=== PATIENT | female | born 1995 | race Caucasian/White ===

== ENCOUNTER 2018-12-18 07:41 | Inpatient (IN) ==
[2018-12-19] MEDS ORDERED: OXYTOCIN 30 UNITS/500 ML BAG IV PRN ×3 (07:59→18:01)
[2018-12-19 08:14] LABS: Hematocrit (blood only) 36.1 % (37-47); Mean Corpuscular Hemoglobin 28.8 pg (25-34); Mean Corpuscular Volume 86.6 fL (80-100); Mean Platelet Volume 10.1 fL (7.4-10.4); Platelet Count 195 K/uL (130-400); RDW Coefficient of Variation 12.9 % (11.5-14.5); RDW Standard Deviation 41.4 fL (36.4-46.3); Red Blood Count 4.17 M/uL (4.2-5.4); White Blood Count 10.86 K/uL (4.8-10.8)
[2018-12-19 08:16] LABS: Mean Corpuscular Hgb Conc 33.2 g/dL (32-36)
[2018-12-19] MEDS: LACTATED RINGER'S 1,000 ML IV PRN ×3 (08:38→14:33)
--- NOTE | 2018-12-19 08:46 | History & Physical Report ---
Date of Service December 19, 2018 Assessment & Plan (1) : 23yo at 40.3 weeks GA. Present for IOL. 1. Fetus: Cat 1 2. Labor: S/p Sheets. Oxytocin. Will ROM when able 3. Vitals: WNL 4. GBS- History of Present Illness Primary Care Provider: NO PCP 23yo at 40.3 weeks GA. Present for IOL. Denies VB, LOF. Good FM. course complicated by prior complicated by aortic stenosis. ECHO normal with this . GBS negative/Normal cfDNA/ Rubella immune / AB+ Allergies Allergy/AdvReac Type Severity Reaction Status Date / Time No Known Drug Allergies Allergy Verified 12/18/18 16:23 Home Medications Home Medications Medication Instructions Recorded Confirmed Type 1 tab PO DAILY 10/14/18 12/19/18 History vitamin,calcium,qezvbsfa-jrwg-hddpv acid tablet Patient History Family History Son Heart murmur Aortic stenosis Social History Preferred Language: Somali Communication Ability: Effective Quantitative Analyst Developer Required: No Beliefs That Will Affect Care: None marital status: Single Current Living Situation: Significant Other Other Information That Helps Us Care for You: No Feels Safe at Home: Yes Smoking Status: Never smoker Hx Alcohol Use: No Hx Substance Use: No Physical Exam Constitutional: WD/WN, vitals as above Gastrointestinal (Abdomen): Inspection/Auscultation: abdomen normal to inspection Percussion/Palpation: abdomen soft; abdomen nontender, no guarding and abdomen not rigid Genitourinary: OB Exam Abdomen: + fundal height Manual OB Exam: + cervical dilation 3 cm, + cervical effacement 70%, + station -2 and + amniotic fluid OB Exam Monitor Tracing: + external FHT monitor used, + external uterine monitor used, + category I and + normal FHT variability Results & Data Vital Signs (Past 12 Hours) Vital Signs Temp Pulse Resp BP 12/19/18 07:44 37.2 C 88 20 115/62 Code Status & VTE Plan VTE Prophylaxis Plan VTE Prophylaxis will be ordered: No
[2018-12-19] MEDS ORDERED: BUPIVACAINE 0.25% 30 ML VIAL ONE (12:55)
[2018-12-19] MEDS ORDERED: fentaNYL citrate 100 MCG/2 ML VIAL ONE (12:56)
[2018-12-19] MEDS ORDERED: fentaNYL 2MCG/ML ROPIV 1.25MG/ML 100 ML BAG EPI ONE (12:56)
[2018-12-19] MEDS ORDERED: ePHEDrine sulfate 50 MG/ML AMP ONE (12:56)
--- NOTE | 2018-12-19 12:59 | Anesthesiology Consultation ---
Date of Service December 19, 2018 Assessment & Plan (1) Encounter for pre-operative examination: Chart Review Chart Review: Acceptable Risk for Surgery and Acceptable Risk for Labor Epidural History Height/Weight Height: 4 ft 10 in Weight: 69.4 kg Allergies Allergy/AdvReac Type Severity Reaction Status Date / Time No Known Drug Allergies Allergy Verified 12/18/18 16:23 Medications Home Medications Medication Instructions Recorded Confirmed Last Taken 1 tab PO DAILY 10/14/18 12/19/18 12/19/18 06:30 vitamin,calcium,onhautwq-lkik-ryzvh acid tablet Active Medications Generic Name Dose Route Start Last Admin Trade Name Freq PRN Reason Stop Dose Admin Lactated Ringer's 1,000 mls @ 125 mls/hr 12/19/18 07:59 12/19/18 12:39 Lr IV 12/21/18 07:58 999 mls/hr .Q8H PRN Infusion L&D Protocol Protocol Oxytocin 30 units in 500 mls @ 10 mls/hr 12/19/18 07:59 12/19/18 11:15 Pitocin IV 12/21/18 07:58 0.6 units/hr .Q24H PRN 10 mls/hr Labor Induction/Augmentation Titration Protocol 0.6 UNITS/HR Past Medical History Medical History History of varicella Past Family History Family History Son Heart murmur Aortic stenosis Past Surgical History Surgical History No pertinent past surgical history Social History Smoking Status: Never smoker Hx Alcohol Use: No Hx Substance Use: No substance use type: does not use Physical Exam Vital Signs Last Vital Signs Temp 37.0 C 12/19/18 12:40 Pulse 86 12/19/18 12:40 Resp 20 12/19/18 12:40 BP 110/67 12/19/18 12:40 Testing Laboratory Results 12/19/18 08:05
[2018-12-19] MEDS ORDERED: NALOXONE HCL 0.4 MG/1 ML VIAL/CARP IV PRN (13:28)
[2018-12-19] MEDS ORDERED: fentaNYL 2MCG/ML ROPIV 1.25MG/ML 100 ML BAG EPI PRN (13:28)
[2018-12-19] MEDS ORDERED: NALOXONE HCL 1 MG in SODIUM CHLORIDE 0.9% 1000ML 1,000 ML IV PRN (13:28)
[2018-12-19] MEDS ORDERED: ONDANSETRON INJ 2 MG/ML 2 ML VIAL IV PRN (13:28)
[2018-12-19] MEDS ORDERED: ePHEDrine sulfate 50 MG/ML AMP IV PRN (13:28)
--- NOTE | 2018-12-19 14:02 | Labor Progress Brief Note ---
Date of Service December 19, 2018 Subjective Reason For Note: Routine Evaluation Assessment & Plan (1) : 23yo at 40.3 weeks GA. Present for IOL. 1. Fetus: Cat 1 2. Labor: S/p Sheets. Oxytocin. AROM 3. Vitals: WNL 4. GBS- Physical Exam Genitourinary: OB Exam Abdomen: + vertex Manual OB Exam: + cervical dilation 5 cm, + cervical effacement 80%, + station -2 and + amniotic fluid clear and bloody OB Exam Monitor Tracing: + external FHT monitor used, + external uterine monitor used and + normal FHT variability Results & Data Vital Signs (Past 12 Hours) Vital Signs Temp Pulse Resp BP Pulse Ox 12/19/18 13:58 87 102/58 L 90 12/19/18 13:57 73 99 12/19/18 13:56 86 103/53 L 12/19/18 13:54 82 97/52 L 12/19/18 13:52 73 96/54 L 100 12/19/18 13:50 93 H 99/51 L 12/19/18 13:48 85 104/53 L 12/19/18 13:47 74 100 12/19/18 13:44 61 81/42 L 12/19/18 13:43 68 91 12/19/18 13:42 61 95 12/19/18 13:39 89 102/50 L 12/19/18 13:37 78 96 12/19/18 13:34 71 99/49 L 12/19/18 13:32 89 99 12/19/18 13:31 93 H 92/50 L 12/19/18 13:30 18 12/19/18 13:29 71 94/54 L 12/19/18 13:27 81 94/51 L 100 12/19/18 13:25 72 20 99/54 L 12/19/18 13:23 89 104/58 L 12/19/18 13:22 88 100 12/19/18 13:21 78 106/56 L 12/19/18 13:19 93 H 108/66 12/19/18 13:17 82 100 12/19/18 12:40 37.0 C 86 20 110/67 12/19/18 11:46 86 100/63 12/19/18 10:46 37.2 C 82 20 103/69 12/19/18 09:53 88 103/57 L 12/19/18 09:16 93 H 95/54 L 12/19/18 08:42 96 H 106/60 12/19/18 07:44 37.2 C 88 20 115/62
[2018-12-19] MEDS ORDERED: Nursing to Pharmacy Communication ONE (14:40)
[2018-12-19] MEDS ORDERED: SUPERCREAM 0.870% 15 GM JAR EXT PRN (18:01)
[2018-12-19] MEDS ORDERED: bisacodyL 10 MG SUPP PR PRN (18:01)
[2018-12-19] MEDS ORDERED: DIPHTHERIA/TETANUS/PERTUSSIS 0.5 ML SYR/VIAL IM ONE (18:01)
[2018-12-19] MEDS ORDERED: HYDROCORTISONE ACETATE 25 MG SUPP PR PRN (18:01)
[2018-12-19] MEDS ORDERED: ACETAMINOPHEN 325 MG TAB PO PRN (18:01)
[2018-12-19] MEDS ORDERED: BENZOCAINE 20% AER SPR 82.5 GM CAN EXT PRN (18:01)
--- NOTE | 2018-12-19 18:52 | Anesthesia Procedure Note ---
Date of Service December 19, 2018 Anesthesia Post Epidural Note Vital Signs Vital Signs: Temp Pulse Resp BP Pulse Ox 37.1 C 101 H 20 106/55 L 99 12/19/18 16:30 12/19/18 18:46 12/19/18 18:46 12/19/18 18:46 12/19/18 17:52 Pain Intensity Abdomen: Pain Intensity: 0 Notes Mental Status: alert / awake / arousable and participated in evaluation Nausea / Vomiting: adequately controlled Pain: adequately controlled Airway Patency, RR, SpO2: stable & adequate BP & HR: stable & adequate Hydration State: stable & adequate Neuraxial Anesthesia: was administered and sensory block is resolving Anesthetic Complications: no major complications apparent Epidural: Removed without complications and With tip intact
--- NOTE | 2018-12-19 20:19 | Delivery Summary ---
DATE OF OPERATION: 12/19/2018 PROCEDURE: Normal spontaneous vaginal delivery. SURGEON: Aguilar Orlando MD. PREOPERATIVE DIAGNOSIS: Single intrauterine at 40+ weeks' gestational age. POSTOPERATIVE DIAGNOSIS: Single intrauterine at 40+ weeks' gestational age, delivered. ESTIMATED BLOOD LOSS: 250 mL. DRAINS: None. FLUIDS: Continuous lactated ringer. URINE OUTPUT: Not measured. COMPLICATIONS: None. FINDINGS: Viable with weight pending, Apgars of 8 and 9 at 1 and 5 minutes respectively. INDICATIONS: Zbigniew is a 23-year-old G3, P2-0-0-2 admitted at 40 weeks 3 days gestational age for elective induction of labor. At initial evaluation, she was found to be 3 cm dilated, 70% effaced, -2 station. She was started on oxytocin per regular protocol. She underwent artificial rupture of membranes, received an epidural for anesthesia. She continued to progress in labor to complete-complete +2 station, at which time she felt the urge to push. The patient pushed in total for less than 10 minutes to achieve delivery. DESCRIPTION OF PROCEDURE: The patient progressed to 10 cm dilated, 100% effaced, +2 station, pushed over intact perineum over approximately 4 contractions to deliver the head. Head of the delivered in ANA position restituted to left transverse. Nuchal x1 was noted which was easily reduced. Body and shoulders quickly followed. was noted to be vigorous immediately after delivery. At 1-minute delayed cord clamping was initiated, after which the cord was double clamped and cut. Cord blood was then obtained. Attention was then turned to delivering the placenta which was delivered intact with 3-vessel cord with gentle cord traction. On inspection of the perineum, vagina, and cervix, there was noted to be no lacerations. Sponge and instrument counts were correct at the completion of the case. Both mother and were stable in the immediate post-delivery period. I attest to the content of the Intraoperative Record and any orders documented therein. Any exception s are noted below.
[2018-12-19] MEDS: DOCUSATE SODIUM 100 MG CAP PO SCH (21:23)
[2018-12-19] MEDS: IBUPROFEN 600 MG TAB PO PRN (21:23)
--- NOTE | 2018-12-20 06:18 | Obstetrical Progress Note ---
Date of Service <Opal Benavides DO - Last Filed: 12/20/18 06:51> December 20, 2018 Assessment & Plan <Opal Benavides DO - Last Filed: 12/20/18 06:51> (1) Encounter for care and examination after delivery: 23 yo F PPD #1 following vaginal delivery at 40.3weeks, doing well and without complaints this morning. - PPD #1 - Feels well, ambulating well, voiding well. - Will continue routine care. - Following d/c will have f/u in 6 weeks. - Blood type AB+, Rubella immune. - Answered all patient questions. Subjective <Opal Benavides - Last Filed: 12/20/18 06:51> Zbigniew is a 23 yo female ; PPD # 1 following vaginal delivery at 40.3weeks; doing well this AM; no abdominal cramping/pain; voiding well; tolerating fluids overnight, able to ambulate some within the room. Some persistent spotting this morning but improved from yesterday. Review of Systems Constitutional: denies fever, chills, sweats, headache Respiratory: denies SOB, difficulty breathing Cardiac: denies CP, chest palpitations, chest pressure Breast: denies breast pain : denies dysuria Physical Exam <Opal Benavides - Last Filed: 12/20/18 06:51> General: patient is alert and oriented, in NAD Cardiac: +S1/S2, no murmurs rubs or gallops Respiratory: lungs CTA b/l, anteriorly and posteriorly, no wheezes rales or rhonchi, no increased work of breathing, symmetric chest rise, no respiratory distress Abdomen: soft, NT, +bowel sounds Uterus: uterine fundus firm and palpable below the level of the umbilicus Lower Extremities: no LE edema or swelling, no deep calf pain, Vianey's sign negative b/l Results & Data <Opal Benavides - Last Filed: 12/20/18 06:51> Vital Signs (Past 12 Hours) Vital Signs Temp Pulse Pulse Resp BP BP Pulse Ox 12/20/18 03:35 36.6 C 79 16 111/73 99 12/19/18 23:15 36.7 C 76 16 102/64 98 12/19/18 20:15 36.9 C 96 H 16 108/83 99 12/19/18 20:00 37.0 C 109 H 20 106/56 L 12/19/18 19:48 116 H 110/66 12/19/18 19:46 98 H 95/47 L 12/19/18 19:31 116 H 18 103/56 L 12/19/18 19:16 98 H 102/53 L 12/19/18 19:01 36.7 C 96 H 16 117/58 L 12/19/18 18:46 101 H 20 106/55 L 12/19/18 18:31 99 H 20 104/58 L Laboratory Results Laboratory Results - last 24 hr 12/19/18 12/20/18 08:05 06:07 WBC 10.86 H RBC 4.17 L Hgb 12.0 10.1 L Hct 36.1 L 31.4 L MCV 86.6 MCH 28.8 MCHC 33.2 RDW Std Deviation 41.4 RDW Coeff of Nazario 12.9 Plt Count 195 MPV 10.1 Medications Administered Current Medications Acetaminophen (Tylenol) 650 mg PO Q6H PRN PRN Reason: Pain/MCKINNEY/Fever Stop: 01/18/19 18:00 Benzocaine (Dermoplast Pain Relieving [place]) 1 appln EXT PRN PRN PRN Reason: Perineal Discomfort Stop: 01/18/19 18:00 Bisacodyl (Dulcolax) 5 mg PO 1999 [facility] Stop: 12/20/18 20:01 Bisacodyl (Dulcolax) 10 mg AK DAILY PRN PRN Reason: No BM on 2nd post- day Stop: 01/18/19 18:00 Cocaine HCl (Supercream 0.870%) 1 gm EXT BID PRN PRN Reason: Hemorrhoidal Inflammation Stop: 01/02/19 18:00 Docusate Sodium (Colace) 100 mg PO DAILY@08,21 [facility] Stop: 01/18/19 20:59 Last Admin: 12/19/18 21:23 Dose: 100 mg Documented by: Hydrocortisone (Anusol Hc) 25 mg AK BID PRN PRN Reason: Hemorrhoidal Inflammation Stop: 01/18/19 18:00 Oxytocin (Pitocin) 30 units in 500 mls @ 333 mls/hr IV .Q1H31M PRN; Protocol PRN Reason: Labor Induction/Augmentation Stop: 12/21/18 07:58 Last Titration: 12/19/18 19:55 Dose: Infused Documented by: Ibuprofen (Motrin) 600 mg PO Q4H PRN PRN Reason: Pain/MCKINNEY/Cramping/Fever Stop: 01/18/19 18:00 Last Admin: 12/19/18 21:23 Dose: 600 mg Documented by: Prenat Multivit/[place]/Iron/Folic Ac ( Vitamin) 1 tab PO DAILY@08 [place] Stop: 01/19/19 07:59 <Aguilar Orlando MD - Last Filed: 12/20/18 07:41> Co-Signing Physician Notes Patient seen and evaluated and agree with the above findings and plan. Resident Activity Tracking <Opal Benavides DO - Last Filed: 12/20/18 06:51> Resident Involvement: Resident Care Provided Care Provided: Adult Hospital Medicine
[2018-12-20 06:29] LABS: Hematocrit (blood only) 31.4 % (37-47); Hemoglobin 10.1 g/dL (12.0-16.0)
[2018-12-20] MEDS: DOCUSATE SODIUM 100 MG CAP PO SCH ×2 (07:42→20:42)
[2018-12-20] MEDS: IBUPROFEN 600 MG TAB PO PRN (07:42)
[2018-12-20] MEDS: PRENATAL VITAMIN 1 TAB PO SCH (07:42)
[2018-12-20 17:08] VITALS: O2SAT 98
[2018-12-20] MEDS ORDERED: bisacodyL 5 MG TABEC PO SCH (20:00)
[2018-12-20 23:30] VITALS: BP 104/64; TEMP 97.9
--- NOTE | 2018-12-21 06:26 | Obstetrical Progress Note ---
Date of Service December 21, 2018 Assessment & Plan (1) : PPD#2 doing well. DC home today. Instructions discussed. Subjective Ambulation: ambulating normally Voiding: no voiding problems Diet Tolerance:: regular diet Lochia:: Moderate Review of Systems All systems reviewed & are unremarkable except as noted in HPI & below Physical Exam Constitutional WD/WN, vitals as above no acute distress Respiratory normal respiratory effort Cardiovascular Rate/Rhythm: regular rate and regular rhythm Gastrointestinal (Abdomen) Inspection/Auscultation: abdomen normal to inspection; abdomen not distended Percussion/Palpation: abdomen soft Genitourinary OB Exam Abdomen: + fundal height Fundus: + firm; not tender Results & Data Vital Signs (Past 12 Hours) Vital Signs Temp Pulse Resp BP 12/20/18 23:10 36.6 C 63 18 104/64
[2018-12-21] MEDS: PRENATAL VITAMIN 1 TAB PO SCH (08:53)
[2018-12-21] MEDS: DOCUSATE SODIUM 100 MG CAP PO SCH (08:55)
[2018-12-21 10:40] VITALS: PULSE 87
== END 2018-12-21 12:25 | disposition home or self-care (01) | DRG 807 ==
LOC: 4S1 12-19 07:39 → 4S2 12-19 20:15

== ENCOUNTER 2021-05-19 07:32 | Inpatient (IN) ==
[2021-05-19] MEDS ORDERED: OXYTOCIN 30 UNITS/500 ML BAG IV PRN ×3 (07:59→21:16)
[2021-05-19] MEDS ORDERED: VANCOMYCIN HCL 1,000 MG in SODIUM CHLORIDE 0.9% 250 ML IV STA (07:59)
[2021-05-19 08:19] LABS: Hematocrit (blood only) 33.9 % (37-47); Hemoglobin 10.9 g/dL (12.0-16.0); Mean Corpuscular Hgb Conc 32.2 g/dL (32-36); Mean Corpuscular Volume 83.9 fL (80-100); Mean Platelet Volume 10.1 fL (7.4-10.4); Platelet Count 225 K/uL (130-400); RDW Coefficient of Variation 13.3 % (11.5-14.5); RDW Standard Deviation 40.3 fL (36.4-46.3); Red Blood Count 4.04 M/uL (4.2-5.4); White Blood Count 9.02 K/uL (4.8-10.8)
[2021-05-19] MEDS: LACTATED RINGER'S 1,000 ML IV PRN ×3 (08:32→16:35)
--- NOTE | 2021-05-19 08:42 | History & Physical Report ---
Date of Service May 19, 2021 Assessment & Plan (1) Group B streptococcal infection during : (2) 40 weeks gestation of : Plan: fetus category one. Plan pit induction, epidural on demand. arom when indicated. anticipate . Plan vancomycin for gbs coverage. Peds aware of situation. Admission and Anticipated Discharge Date Admission Date: May 19, 2021 History of Present Illness Chief Complaint: presents for induction Primary Care Provider: NO PCP Patient is a 25yowf who presents to labor and delivery for induction. She feels well. Notes good fm. no lof, vb. Rare contractions. uncomplicated. Patient is GBS positive. Of note, she has true anaphylaxis to pcn, so not a candidate for ancef. Did not have allergy testing. Unfortunately did not have sensitivities on her GBS culture. and Delivery Plans Son with aortic and pulmonary stenosis * echo (01/11/21 @ [facility]) - WNL Declines flu and covid vaccines--ak GBS positive--pcn anaphylaxis and no sensitivities done *treat in labor OB Labs: Blood Type AB Positive 10/08/20 Antibody Screen NEGATIVE 10/08/20 Hemoglobin 11.7 g/dL (12.0-16.0) L 02/24/21 Hematocrit 35.8 % (37-47) L 02/24/21 Mean Corpuscular Volume 86.9 fL (80-100) 10/08/20 Platelet Count 280 K/uL (130-400) 10/08/20 Rubella IgG Antibody Immune (Immune) 10/08/20 Rapid Plasma Reagin Nonreactive (Nonreactive) 10/08/20 Hepatitis B Surface Antigen Neg (Neg) 10/08/20 HIV (1&2) Ab and P24 Ag, 4th Gener Neg (Neg) 10/08/20 Glucose 1 Hour 50 gm Load 102 mg/dl (70-130) 02/24/21 Maternal Serum Alpha Fetoprotein 40.2 NG/ML 07/02/18 OB Optional Labs: Chlamydia trachomatis RNA NOT DETECTED (NOT DETECTED) 10/08/20 Neisseria gonorrhoeae RNA NOT DETECTED (NOT DETECTED) 10/08/20 Alpha Fetoprotein Triple Screen SEE NOTE 07/02/18 Labs Reviewed: cf/sma neg low risk panorama--akh declined afp--akh gbs positive Allergies Allergy/AdvReac Type Severity Reaction Status Date / Time Penicillins Allergy Severe Anaphylaxis Verified 05/18/21 11:15 Home Medications Medication Instructions Recorded Confirmed Type prenat.vits,iram,zqj-dcjp-chybn PO 10/01/20 05/18/21 History ferrous sulfate 325 mg PO DAILY 03/10/21 05/19/21 History Patient History Medical History History of varicella Post-dates depression Unfavorable cervix in term Surgical History No pertinent past surgical history Family History Son Heart murmur Aortic stenosis Denies family history of Ovarian cancer Prostate cancer Breast cancer Colorectal cancer Social History Smoking Status: Never smoker Second Hand Exposure: No; Hx Alcohol Use: No Hx Substance Use: No Preferred Language: Turkmen Communication Ability: Effective Visual Impairment: No Limitations Hearing Ability: Normal Organisation And Methods Analyst Required: No Beliefs That Will Affect Care: None marital status: Single Current Living Situation: Spouse Current Living Situation Comment: Lives with FOB and children, 2 dogs. current occupational status: unemployed current occupation: homemaker Other Information That Helps Us Care for You: No Feels Safe at Home: Yes Safety Concerns: Feels Safe At This Time Assistive Devices: None OB History Del. Date GA wks Lbr Lgth wt Sex Type del Anes Place Del Prov ? Comment 12/02/14 41 7lb 5oz F Epidu ral Other [place] No 09/06/17 40 7lb 3oz M Epidu ral Other [place] No 12/19/18 40 7lbs 7.8oz F Sp inal [facility] [place] No Physical Exam Constitutional: WD/WN, vitals as above Cardiovascular: Extremities: no calf tenderness and no edema Gastrointestinal (Abdomen): soft, nt, gravid Psychiatric: A+Ox3, euthymic affect Genitourinary: cx--3/50/-2/soft/mid toco--rosetta efm--130s, mod variability, accels to 150s, no decels Results & Data ([facility]) Vital Signs (Past 12 Hours) Vital Signs Temp Pulse Resp BP 05/19/21 07:54 36.6 C 20 05/19/21 07:42 92 H 132/71 Coding Level of Care Code None Diagnoses Group B streptococcal infection during O98.819; B95.1 40 weeks gestation of Z3A.40
--- NOTE | 2021-05-19 09:53 | Medical Student H&P ---
Date of Service May 19, 2021 Assessment & Plan (1) 40 weeks gestation of : Plan: - start Pitocin - start Vanco before AROM for GBS+ status with true anaphylaxis to pcn - epidural offered, pt preference before AROM - FHR category 1 - expectant management, with anticipation of Admission and Anticipated Discharge Date Admission Date: May 19, 2021 History of Present Illness Chief Complaint: Zbigniew is 25yo with iup at 40w2d consistent with 1st trimester U/S who present to labor and delivery for IDOL at 40 weeks. Currently she is feeling movements. No bleeding or fluid leaks. No contractions at this time. Some mucus discharge. No concerns currently. This is complicated by mom GBS positive status with allergy to Penicillins with true anaphylaxis. Sensitives on GBS cultures were not completed. Plan is to treat with vancomycin in labor. Her son born with pulmonary and aortic stenosis, echo 01/11/2021 WNL. Labs Lab Results OB Labs: Blood Type AB Positive 10/08/20 Antibody Screen NEGATIVE 10/08/20 Hemoglobin 11.7 g/dL (12.0-16.0) L 02/24/21 Hematocrit 35.8 % (37-47) L 02/24/21 Mean Corpuscular Volume 86.9 fL (80-100) 10/08/20 Platelet Count 280 K/uL (130-400) 10/08/20 Rubella IgG Antibody Immune (Immune) 10/08/20 Rapid Plasma Reagin Nonreactive (Nonreactive) 10/08/20 Hepatitis B Surface Antigen Neg (Neg) 10/08/20 HIV (1&2) Ab and P24 Ag, 4th Gener Neg (Neg) 10/08/20 Glucose 1 Hour 50 gm Load 102 mg/dl (70-130) 02/24/21 Maternal Serum Alpha Fetoprotein 40.2 NG/M OB Optional Labs: Chlamydia trachomatis RNA NOT DETECTED (NOT DETECTED)B 10/08/20 Neisseria gonorrhoeae RNA NOT DETECTED (NOT DETECTED) 10/08/20 Alpha Fetoprotein Triple Screen SEE NOTE 07/02/18 low risk panorama declined afp GBS positive Primary Care Provider: NO PCP Allergies Allergy/AdvReac Type Severity Reaction Status Date / Time Penicillins Allergy Severe Anaphylaxis Verified 05/18/21 11:15 vancomycin Allergy Rash Verified 05/19/21 10:49 Home Medications Medication Instructions Recorded Confirmed Type prenat.vits,iram,myz-mppg-mtriw PO 10/01/20 05/18/21 History ferrous sulfate 325 mg PO DAILY 03/10/21 05/19/21 History Patient History Medical History History of varicella Post-dates depression Unfavorable cervix in term Surgical History No pertinent past surgical history Family History Son Heart murmur Aortic stenosis Denies family history of Ovarian cancer Prostate cancer Breast cancer Colorectal cancer Social History Smoking Status: Never smoker Second Hand Exposure: No; Hx Alcohol Use: No Hx Substance Use: No Preferred Language: Swazi Communication Ability: Effective Visual Impairment: No Limitations Hearing Ability: Normal Boilermaker Required: No Beliefs That Will Affect Care: None marital status: Single Current Living Situation: Spouse Current Living Situation Comment: Lives with FOB and children, 2 dogs. current occupational status: unemployed current occupation: homemaker Other Information That Helps Us Care for You: No Feels Safe at Home: Yes Safety Concerns: Feels Safe At This Time Assistive Devices: None Immunizations: Declines COVID vaccines and flu vaccination OB History G1: Delivery: 12/02/14, 41 weeks, 7 lbs F, epidural,, no complications G2: Delivery: 09/06/17, 40 weeks, 7lbs M, epidural, , no complications G3: Delivery: 12/19/18, 40 week, 7 lbs F, spinal, , no complications Same father [employer] History Last menstrual period: 08/01/2020 Menstrual reliability: definite Flow: heavy Menstrual regularity: regular Monthly: Yes, 28 days Age at menarche: 15 On control pills at conception: No Date of positive home test: 09/13/20 Details: Last pap: Most recent: 09/2020, normal Hx of abnormal: No, 01/2019 not sufficient cells for testing. No f/u done. Review of Systems Denies fevers/chills. Denies dyspnea. Denies chest pain, palpitations Denies dysuria. Denies diarrhea, changes in bowel movements. Denies headache. Denies leg pain and swelling. Physical Exam Physical Exam: General: Alert, oriented, no acute distress Cardiac: Regular rate and rhythm, normal S1, S2. No murmurs appreciated. Respiratory: Clear to auscultation b/l with good air flow entry, symmetric chest rise and fall. No wheezes or crackles. No increased work of breathing or accessory muscle use Abdomen: Gravid, soft, nontender. No guarding or uterine tenderness. Extremities: Trace lower extremity edema b/l, No erythema. LE pulses strong and present b/l. Pelvic Exam per Dr. Collazo Dilation: 3 Effacement: 50% Station: -2 FHR Baseline: 130 BPM Variability: moderate Accelerations: present to 150s Decelerations: None TOCO: rare Monitoring External Monitor Results & Data ([facility]) Vital Signs (Past 12 Hours) Vital Signs Temp Pulse Resp BP 05/19/21 09:09 84 117/76 05/19/21 07:54 36.6 C 20 05/19/21 07:42 92 H 132/71 Laboratory Results Short CBC 05/19/21 Range/Units 08:07 WBC 9.02 (4.8-10.8) K/uL Hgb 10.9 L (12.0-16.0) g/dL Hct 33.9 L (37-47) % Plt Count 225 (130-400) K/uL
[2021-05-19] MEDS ORDERED: diphenhydrAMINE 50 MG/ML VIAL IV STA (10:15)
--- NOTE | 2021-05-19 10:23 | Communication Note ---
Date of Service: May 19, 2021 Patient just finished her vanco dose for GBS positive in last 5-10 minutes. She notes she has developed a slight rash on her neck and upper chest. Notes it feels warm. Notes her head feels really itchy. Looks like a petechial like rash, not hives on the upper chest and neck. she denies sob, feeling like her throat is swollen. Will treat stat with 25mg benadryl IV and continue to watch closely. Will list vanco as an allergy. Made peds aware. Vitals stable. Fetus reassuring.
[2021-05-19] MEDS ORDERED: ePHEDrine sulfate 50 MG/ML AMP ONE (12:29)
[2021-05-19] MEDS ORDERED: BUPIVACAINE 0.25% 30 ML VIAL ONE (12:29)
[2021-05-19] MEDS ORDERED: SODIUM CHLORIDE 0.9% INJ 10 ML VIAL ONE (12:29)
[2021-05-19] MEDS ORDERED: fentaNYL citrate 100 MCG/2 ML VIAL ONE (12:29)
[2021-05-19] MEDS ORDERED: fentaNYL 2MCG/ML ROPIVACAINE 1.25MG/ML 100 ML BAG EPI ONE (12:29)
[2021-05-19] MEDS ORDERED: NALBUPHINE HCL INJ 10 MG/ML AMP IV PRN (14:02)
[2021-05-19] MEDS ORDERED: fentaNYL 2MCG/ML ROPIVACAINE 1.25MG/ML 100 ML BAG EPI PRN (14:02)
[2021-05-19] MEDS ORDERED: NALOXONE HCL 1 MG in SODIUM CHLORIDE 0.9% 1000ML 1,000 ML IV PRN (14:02)
[2021-05-19] MEDS ORDERED: NALOXONE HCL 0.4 MG/1 ML VIAL/CARP IV PRN (14:02)
[2021-05-19] MEDS ORDERED: ePHEDrine sulfate 50 MG/ML AMP IV PRN (14:02)
[2021-05-19] MEDS ORDERED: ONDANSETRON INJ 2 MG/ML 2 ML VIAL IV PRN (14:02)
[2021-05-19] MEDS ORDERED: diphenhydrAMINE 50 MG/ML VIAL IV PRN (14:02)
--- NOTE | 2021-05-19 14:24 | Anesthesiology Consultation ---
Date of Service May 19, 2021 Assessment & Plan (1) Encounter for pre-operative examination: Chart Review Chart Review: Patient NOT seen in Pre Admission Testing and Acceptable Risk for Labor Epidural Consults Requested none History Height/Weight Height: 4 ft 11 in Weight: 84.368 kg Allergies Allergy/AdvReac Type Severity Reaction Status Date / Time Penicillins Allergy Severe Anaphylaxis Verified 05/18/21 11:15 vancomycin Allergy Rash Verified 05/19/21 10:49 Medications Home Medications Medication Instructions Recorded Confirmed Last Taken prenat.vits,iram,[id number] PO 10/01/20 05/18/21 Unknown ferrous sulfate 325 mg PO DAILY 03/10/21 05/19/21 Unknown Active Medications Generic Name Dose Route Start Last Admin Trade Name Freq PRN Reason Stop Dose Admin Lactated Ringer's 1,000 mls @ 125 mls/hr 05/19/21 07:59 05/19/21 13:45 Lr IV 05/21/21 07:58 125 mls/hr .Q8H PRN Infusion L&D Protocol Protocol Oxytocin 30 units in 500 mls @ 12 mls/hr 05/19/21 08:01 05/19/21 12:30 Pitocin IV 05/21/21 08:00 0.72 units/hr .Q24H PRN 12 mls/hr Labor Induction/Augmentation Titration Protocol 0.72 UNITS/HR Past Medical History Medical History History of varicella Post-dates depression Unfavorable cervix in term Exercise / Class Metabolic Activity II 4-5 Yardwork/Stairs/Walk up hill Past Family History Family History Son Heart murmur Aortic stenosis Denies family history of Ovarian cancer Prostate cancer Breast cancer Colorectal cancer Past Surgical History Surgical History No pertinent past surgical history Past Anesthesia History No Hx of Anesthesia Complications and No Family Hx of Anesthesia Complications History of PONV No Hx of PONV and No Hx of Motion Sickness Social History Smoking Status: Never smoker Do You Dip or Chew Tobacco: No Hx Alcohol Use: No Hx Substance Use: No substance use type: does not use Physical Exam Vital Signs Last Vital Signs Temp 37.2 C 05/19/21 11:00 Pulse 88 05/19/21 14:20 Resp 20 05/19/21 13:00 BP 135/95 05/19/21 14:20 Pulse Ox 100 05/19/21 14:18 Testing Laboratory Results 05/19/21 08:07 Blood Type AB Positive 05/19/21 08:07 Antibody Screen NEGATIVE 05/19/21 08:07
--- NOTE | 2021-05-19 15:20 | Labor Progress Brief Note ---
Date of Service May 19, 2021 Subjective comfortable Assessment & Plan (1) 40 weeks gestation of : Plan: continue current management. Fetus category one. anticipate . Admission and Anticipated Discharge Date Admission Date: May 19, 2021 Physical Exam Physical Exam: cx--4-5/90/-2 arom--minimal fluid, ? green toco--2-3, pit at 12 efm--130s, mod variability, accels present, no decels, +scalp stim Results & Data ([facility]) Vital Signs (Past 12 Hours) Vital Signs Temp Pulse Resp BP Pulse Ox 05/19/21 15:13 83 100 05/19/21 15:08 90 99 05/19/21 15:05 90 137/76 05/19/21 15:03 97 H 99 05/19/21 14:58 91 H 100 05/19/21 14:53 92 H 99 05/19/21 14:48 92 H 100 05/19/21 14:44 93 H 158/97 H 05/19/21 14:43 92 H 99 05/19/21 14:39 93 H 157/88 H 05/19/21 14:38 92 H 98 05/19/21 14:34 95 H 128/73 05/19/21 14:33 85 99 05/19/21 14:32 102 H 127/63 05/19/21 14:30 88 134/74 05/19/21 14:28 92 H 136/72 98 05/19/21 14:26 100 H 146/74 H 05/19/21 14:24 90 144/77 H 05/19/21 14:23 92 H 99 05/19/21 14:22 96 H 149/82 H 05/19/21 14:20 88 135/95 05/19/21 14:18 80 133/85 100 05/19/21 14:13 83 99 05/19/21 14:08 80 100 05/19/21 14:06 88 94 05/19/21 14:03 85 100 05/19/21 13:58 86 99 05/19/21 13:53 87 99 05/19/21 13:48 77 99 05/19/21 13:43 84 100 05/19/21 13:38 81 99 05/19/21 13:33 85 99 05/19/21 13:28 80 100 05/19/21 13:27 83 129/79 05/19/21 13:00 20 05/19/21 12:01 96 H 121/68 05/19/21 12:00 20 05/19/21 11:30 20 05/19/21 11:01 94 H 125/74 05/19/21 11:00 37.2 C 18 05/19/21 10:13 85 121/71 05/19/21 10:00 20 05/19/21 09:09 84 117/76 05/19/21 07:54 36.6 C 20 05/19/21 07:42 92 H 132/71 Coding Level of Care Code None Diagnoses 40 weeks gestation of Z3A.40
--- NOTE | 2021-05-19 17:35 | Labor Progress Brief Note ---
Date of Service May 19, 2021 Subjective noting some contractions Assessment & Plan (1) 40 weeks gestation of : Plan: continue management, fetus category one. anticipate . Admission and Anticipated Discharge Date Admission Date: May 19, 2021 Physical Exam Physical Exam: cx--8/100/-1 toco--q2-3min efm--130s with mod variability, small accels, no decels Results & Data ([facility]) Vital Signs (Past 12 Hours) Vital Signs Temp Pulse Resp BP Pulse Ox 05/19/21 17:28 97 H 100 05/19/21 17:23 84 98 05/19/21 17:20 37.6 C H 77 20 128/80 05/19/21 17:18 87 99 05/19/21 17:13 79 99 05/19/21 17:08 98 H 99 05/19/21 17:04 84 137/78 05/19/21 17:03 83 99 05/19/21 16:58 79 99 05/19/21 16:53 84 99 05/19/21 16:49 82 124/72 05/19/21 16:48 75 99 05/19/21 16:43 71 99 05/19/21 16:38 74 99 05/19/21 16:35 87 20 117/74 05/19/21 16:33 80 100 05/19/21 16:28 78 100 05/19/21 16:23 77 100 05/19/21 16:18 85 115/59 L 100 05/19/21 16:13 67 99 05/19/21 16:08 69 100 05/19/21 16:03 81 104/59 L 100 05/19/21 15:58 78 100 05/19/21 15:53 81 100 05/19/21 15:48 77 20 109/65 100 05/19/21 15:43 72 100 05/19/21 15:38 73 100 05/19/21 15:34 75 116/58 L 05/19/21 15:33 78 100 05/19/21 15:28 67 100 05/19/21 15:23 74 100 05/19/21 15:19 81 113/57 L 05/19/21 15:18 90 100 05/19/21 15:15 36.7 C 20 05/19/21 15:13 83 100 05/19/21 15:08 90 99 05/19/21 15:05 90 137/76 05/19/21 15:03 97 H 99 05/19/21 14:58 91 H 100 05/19/21 14:53 92 H 99 05/19/21 14:48 92 H 100 05/19/21 14:44 93 H 158/97 H 05/19/21 14:43 92 H 99 05/19/21 14:39 93 H 157/88 H 05/19/21 14:38 92 H 98 05/19/21 14:34 95 H 128/73 05/19/21 14:33 85 99 05/19/21 14:32 102 H 127/63 05/19/21 14:30 88 134/74 05/19/21 14:28 92 H 136/72 98 05/19/21 14:26 100 H 146/74 H 05/19/21 14:24 90 144/77 H 05/19/21 14:23 92 H 99 05/19/21 14:22 96 H 149/82 H 05/19/21 14:20 88 135/95 05/19/21 14:18 80 133/85 100 05/19/21 14:13 83 99 05/19/21 14:08 80 100 05/19/21 14:06 88 94 05/19/21 14:03 85 100 05/19/21 13:58 86 99 05/19/21 13:53 87 99 05/19/21 13:48 77 99 05/19/21 13:43 84 100 05/19/21 13:38 81 99 05/19/21 13:33 85 99 05/19/21 13:28 80 100 05/19/21 13:27 83 129/79 05/19/21 13:00 20 05/19/21 12:01 96 H 121/68 05/19/21 12:00 20 05/19/21 11:30 20 05/19/21 11:01 94 H 125/74 05/19/21 11:00 37.2 C 18 05/19/21 10:13 85 121/71 05/19/21 10:00 20 05/19/21 09:09 84 117/76 05/19/21 07:54 36.6 C 20 05/19/21 07:42 92 H 132/71 Coding Level of Care Code None Diagnoses 40 weeks gestation of Z3A.40
[2021-05-19] MEDS ORDERED: VANCOMYCIN HCL 1,000 MG in SODIUM CHLORIDE 0.9% 250 ML IV PRN (18:59)
[2021-05-19] MEDS ORDERED: oxyCODONE/ACETAMINOPHEN 5mg/325mg TAB PO PRN (21:16)
[2021-05-19] MEDS ORDERED: DIPHTHERIA/TETANUS/PERTUSSIS 0.5 ML SYR/VIAL IM ONE (21:16)
[2021-05-19] MEDS ORDERED: BENZOCAINE 20% AER SPR 82.5 GM CAN EXT PRN (21:16)
[2021-05-19] MEDS ORDERED: ACETAMINOPHEN 325 MG TAB PO PRN (21:16)
[2021-05-19] MEDS ORDERED: bisacodyL 10 MG SUPP PR PRN (21:16)
[2021-05-19] MEDS ORDERED: HYDROCORTISONE ACETATE 25 MG SUPP PR PRN (21:16)
--- NOTE | 2021-05-19 21:20 | Delivery Summary ---
Vaginal Delivery Summary Date of Service May 19, 2021 Vaginal Delivery Summary and 2nd Degree LAC Pre-operative Diagnosis: at 40 weeks induction Post-operative Diagnosis: same Procedure: pitocin induction epidural arom second degree and bilateral labial lacs and repair EBL: 300cc Anesthesia: epidural Procedure: Patient presents for postdates induction. Favorable cervix. Pitocin induction, epidural, arom. Patient progressed to c/c/+1. The patient pushed for one contractions to deliver a viable male infant in jose position. The anterior shoulder was immediately delivered. During delivery of the ant shoulder I heard a pop. Did not appreciated a significant shoulder dystocia. The rest of the infant was then delivered without difficulty. The baby was vigorous. The nose and mouth were again bulb suctioned and the was placed in the maternal abdomen for drying and attention. Cord was clamped and cut at one minute. Cord blood and segment obtained. Placenta delivered spontaneous, intact with a three vessel cord. Cervix/sulci/rectum were intact. A second degree perineal laceration and bilateral labial lacs repaired in the normal standard fashion. Hemostasis obtained with dilute pitocin and fundal massage. Apgars were 8/9. Mother and baby doing well at the end of the delivery. MNP Vaginal Delivery Charge Delivery Type Details: and 2nd Degree LAC
--- NOTE | 2021-05-19 21:36 | Anesthesia Procedure Note ---
Date of Service May 19, 2021 Anesthesia Post Epidural Note Vital Signs Vital Signs: Temp Pulse Resp BP Pulse Ox 36.7 C 105 H 18 138/62 100 05/19/21 19:01 05/19/21 21:28 05/19/21 20:00 05/19/21 21:28 05/19/21 21:08 Pain Intensity Bilateral Lower Abdomen: Pain Intensity: 0 Notes Mental Status: alert / awake / arousable and participated in evaluation Patient Amnestic to Procedure: No Nausea / Vomiting: adequately controlled Pain: adequately controlled Airway Patency, RR, SpO2: stable & adequate BP & HR: stable & adequate Hydration State: stable & adequate Neuraxial Anesthesia: was administered and sensory block is resolving Anesthetic Complications: no major complications apparent and Pt Satisfied with anesthetic care Epidural: Removed without complications and With tip intact
[2021-05-19] MEDS: IBUPROFEN 600 MG TAB PO PRN (22:51)
[2021-05-19] MEDS ORDERED: METHYLERGONOVINE MALEATE 0.2 MG/ML AMP ONE (23:34)
[2021-05-19] MEDS ORDERED: METHYLERGONOVINE MALEATE 0.2 MG/ML AMP IM STA (23:44)
[2021-05-20] MEDS: IBUPROFEN 600 MG TAB PO PRN ×4 (04:25→20:16)
--- NOTE | 2021-05-20 05:30 | Obstetrical Progress Note ---
Date of Service <Sheryl Johnson MD - Last Filed: 05/20/21 07:11> May 20, 2021 Assessment & Plan <Sheryl Johnson MD - Last Filed: 05/20/21 07:11> (1) Vaginal delivery: 25 yo now PPD1 from at 40wk2d, with PPH 500ccs+ requiring mether gine -Continue routine care -Vitals reviewed- HDS, afebrile -Blood type AB+, GBS+, Rubella immune -Encourage ambulation -Pain control with ibuprofen, acetaminophen PRN -Encourage -Hgb 8.4 today, asymptomatic -F/u in 6 weeks with OB <Maria C Collazo MD, FACOG - Last Filed: 05/20/21 07:35> (1) Vaginal delivery: Subjective <Sheryl Johnson MD - Last Filed: 05/20/21 07:11> Ambulation: ambulating normally Voiding: no voiding problems Passing Gas:: Yes Diet Tolerance:: regular diet Lochia:: Small Feeding Type:: bottle feeding Current Pain Level(1-10): 0 Pt doing well overall, no acute complaints or distress. Pain well controlled with medication. Reports some mild dysuria. Bleeding slowing down and mild- moderate. Review of Systems +Dysuria Denies fever/chills. Denies dyspnea, cough. Denies chest pain. Denies breast pain or discharge. Denies headache. Denies back pain. Physical Exam <Sheryl Johnson MD - Last Filed: 05/20/21 07:11> General: Alert, oriented, no acute distress Cardiac: Regular rate and rhythm, normal S1, S2. No murmurs appreciated. Respiratory: Clear to auscultation b/l with good air flow entry, symmetric chest rise and fall. No wheezes or crackles. No increased work of breathing or accessory muscle use Abdomen: Soft, nontender, nondistended. Fundus firm and palpable at 2 cm below umbilicus. No guarding or rebound. Skin: No rashes or lesions Extremities: Warm, dry, well-perfused with capillary refill <2s b/l. No lower extremity edema, erythema or swelling. Negative Vianey's sign b/l. Results & Data ([facility]) <Sheryl Johnson MD - Last Filed: 05/20/21 07:11> Vital Signs (Past 12 Hours) Vital Signs Temp Pulse Pulse Resp BP BP Pulse Ox 05/20/21 05:04 36.7 C 75 18 100/66 98 05/20/21 01:00 36.9 C 79 18 116/77 98 05/20/21 00:43 99 H 128/87 05/20/21 00:28 100 H 109/67 05/20/21 00:13 87 107/56 L 05/19/21 23:58 78 119/65 05/19/21 23:43 113 H 129/75 05/19/21 23:28 100 H 121/60 05/19/21 23:13 94 H 123/58 L 05/19/21 23:02 88 132/59 L 05/19/21 22:43 100 H 132/77 05/19/21 22:28 101 H 147/70 H 05/19/21 22:15 107 H 20 124/72 05/19/21 22:13 107 H 124/72 05/19/21 22:00 100 H 18 133/69 05/19/21 21:58 100 H 133/69 05/19/21 21:45 102 H 18 136/71 05/19/21 21:44 102 H 136/71 05/19/21 21:30 36.7 C 105 H 18 138/62 05/19/21 21:28 105 H 138/62 05/19/21 21:15 105 H 18 138/62 05/19/21 21:08 98 H 100 05/19/21 21:03 103 H 100 05/19/21 20:58 114 H 100 05/19/21 20:53 102 H 100 05/19/21 20:48 107 H 100 05/19/21 20:43 108 H 124/80 100 05/19/21 20:38 91 H 100 05/19/21 20:33 106 H 100 05/19/21 20:28 98 H 134/77 99 05/19/21 20:23 93 H 100 05/19/21 20:18 96 H 100 05/19/21 20:13 88 137/73 100 05/19/21 20:08 85 100 05/19/21 20:03 89 100 05/19/21 20:00 18 05/19/21 19:58 90 133/63 100 05/19/21 19:53 94 H 100 05/19/21 19:48 95 H 100 05/19/21 19:43 109 H 100 05/19/21 19:38 83 100 05/19/21 19:33 88 100 05/19/21 19:30 79 111/61 05/19/21 19:28 89 100 05/19/21 19:23 77 100 05/19/21 19:18 74 100 05/19/21 19:13 79 107/55 L 100 05/19/21 19:08 83 100 05/19/21 19:03 84 100 05/19/21 19:01 36.7 C 18 05/19/21 18:59 98 H 118/58 L 05/19/21 18:58 97 H 100 05/19/21 18:53 76 100 05/19/21 18:48 76 100 05/19/21 18:45 65 114/56 L 05/19/21 18:43 91 H 100 05/19/21 18:38 93 H 100 05/19/21 18:33 105 H 99 05/19/21 18:28 101 H 100 05/19/21 18:27 37.4 C 96 H 20 122/65 05/19/21 18:25 100 H 131/71 05/19/21 18:23 103 H 141/85 H 99 05/19/21 18:21 106 H 136/84 05/19/21 18:19 107 H 132/81 05/19/21 18:18 114 H 100 05/19/21 18:17 94 H 132/77 05/19/21 18:15 111 H 129/78 05/19/21 18:13 104 H 129/75 100 05/19/21 18:11 111 H 129/76 05/19/21 18:08 100 H 100 05/19/21 18:04 92 H 145/84 H 05/19/21 18:03 100 H 100 05/19/21 17:58 120 H 99 05/19/21 17:53 99 H 100 05/19/21 17:48 93 H 130/77 99 05/19/21 17:43 98 H 100 05/19/21 17:38 102 H 100 05/19/21 17:34 97 H 122/78 05/19/21 17:33 89 100 <Maria C Collazo MD, FACOG - Last Filed: 05/20/21 07:35> Co-Signing Physician Notes Resident Physician Supervision Note: I interviewed and examined the patient. Discussed with Dr. Johnson and agree with findings and plan as documented in the note. Any exceptions or clarifications are listed here: Doing well. Bleeding scant. hgb 8.4 today, asymptomatic. Routine pp care. Documented By: Maria C Collazo MD, FACOG Resident Activity Tracking <Sheryl Johnson MD - Last Filed: 05/20/21 07:11> Resident Involvement: Resident Care Provided Care Provided: OB Delivery
[2021-05-20 06:28] LABS: Hemoglobin 8.4 g/dL (12.0-16.0)
--- NOTE | 2021-05-20 07:22 | Medical Student Progress Note ---
Date of Service May 20, 2021 Assessment & Plan (1) Vaginal delivery: Plan: 25yo PPD1 from at 40w2d -Continue routine care -Vitals reviewed- HDS, afebrile -Blood type AB+, GBS+ given vanc, Rubella immune -Encourage ambulation, regular diet -Pain control with ibuprofen, acetaminophen PRN -Encourage -Hgb 8.4, vitals stable will continue to monitor. -F/u in 6 weeks with OB after discharge Admission and Anticipated Discharge Date Admission Date: May 19, 2021 Subjective 25 F delivered by at 40w2d PPD1. complicated by GBS+ with pcn anaphylaxis, given vanc. Son with pulmonary and aortic stenosis, echo 12/2020 WNL. Postdelivery EBL 300 cc with additional 500 cc. Methergine given. No concerns today. Comfortable. Ambulating well.Voiding and passing gas. Regular diet. Lochia moderate, slowing, no clots. Exclusively bottle feeding. No pain. ROS: No fevers/chills, SOB, cough, CP, palpitations, breast pain or discharge, or headache. Urinary burning present but no pain or frequency. Physical Exam Physical Exam: General: Alert, oriented, no acute distress Cardiac: Regular rate and rhythm, normal S1, S2. No murmurs appreciated. Respiratory: Clear to auscultation bilaterally. No wheezes or crackles. No increased work of breathing or accessory muscle use Abdomen: Soft, nontender, nondistended. Fundus firm and palpable at 2 cm below umbilicus. Extremities: No lower extremity edema, erythema or swelling. Results & Data ([facility]) Vital Signs (Past 12 Hours) Vital Signs Temp Pulse Pulse Resp BP BP Pulse Ox 05/20/21 05:04 36.7 C 75 18 100/66 98 05/20/21 01:00 36.9 C 79 18 116/77 98 05/20/21 00:43 99 H 128/87 05/20/21 00:28 100 H 109/67 05/20/21 00:13 87 107/56 L 05/19/21 23:58 78 119/65 05/19/21 23:43 113 H 129/75 05/19/21 23:28 100 H 121/60 05/19/21 23:13 94 H 123/58 L 05/19/21 23:02 88 132/59 L 05/19/21 22:43 100 H 132/77 05/19/21 22:28 101 H 147/70 H 05/19/21 22:15 107 H 20 124/72 05/19/21 22:13 107 H 124/72 05/19/21 22:00 100 H 18 133/69 05/19/21 21:58 100 H 133/69 05/19/21 21:45 102 H 18 136/71 05/19/21 21:44 102 H 136/71 05/19/21 21:30 36.7 C 105 H 18 138/62 05/19/21 21:28 105 H 138/62 05/19/21 21:15 105 H 18 138/62 05/19/21 21:08 98 H 100 05/19/21 21:03 103 H 100 05/19/21 20:58 114 H 100 05/19/21 20:53 102 H 100 05/19/21 20:48 107 H 100 05/19/21 20:43 108 H 124/80 100 05/19/21 20:38 91 H 100 05/19/21 20:33 106 H 100 05/19/21 20:28 98 H 134/77 99 05/19/21 20:23 93 H 100 05/19/21 20:18 96 H 100 05/19/21 20:13 88 137/73 100 05/19/21 20:08 85 100 05/19/21 20:03 89 100 05/19/21 20:00 18 05/19/21 19:58 90 133/63 100 05/19/21 19:53 94 H 100 05/19/21 19:48 95 H 100 05/19/21 19:43 109 H 100 05/19/21 19:38 83 100 05/19/21 19:33 88 100 05/19/21 19:30 79 111/61 05/19/21 19:28 89 100 05/19/21 19:23 77 100 Laboratory Results Abnormal lab results 05/19/21 05/20/21 Range/Units 08:07 06:15 RBC 4.04 L (4.2-5.4) M/uL Hgb 10.9 L 8.4 L (12.0-16.0) g/dL Hct 33.9 L 26.0 L (37-47) %
--- NOTE | 2021-05-20 07:40 | Medical Student Progress Note ---
Date of Service May 20, 2021 Assessment & Plan (1) Vaginal delivery: Plan: 25yo PPD1 from at 40w2d -Continue routine care -Vitals reviewed- HDS, afebrile -Blood type AB+, GBS+ given vanc, Rubella immune -Encourage ambulation, regular diet -Pain control with ibuprofen, acetaminophen PRN -Encourage -Hgb 8.4 -F/u in 6 weeks with OB after discharge Admission and Anticipated Discharge Date Admission Date: May 19, 2021 Subjective 25 F delivered by at 40w2d PPD1. complicated by GBS+ with pcn anaphylaxis, given vanc. Son with pulmonary and aortic stenosis, echo 12/2020 WNL. Postdelivery EBL 300 cc with additional 500 cc. Methergine given. No concerns today. Comfortable. Ambulating well.Voiding and passing gas. Regular diet. Lochia moderate, slowing, no clots. Exclusively bottle feeding. No pain. ROS: No fevers/chills, SOB, cough, CP, palpitations, breast pain or discharge, or headache. Urinary burning present but no pain or frequency. Physical Exam Physical Exam: General: Alert, oriented, no acute distress Cardiac: Regular rate and rhythm, normal S1, S2. No murmurs appreciated. Respiratory: Clear to auscultation bilaterally. No wheezes or crackles. No incr eased work of breathing or accessory muscle use Abdomen: Soft, nontender, nondistended. Fundus firm and palpable at 2 cm below umbilicus. Extremities: No lower extremity edema, erythema or swelling. Results & Data ([facility]) Vital Signs (Past 12 Hours) Vital Signs Temp Pulse Pulse Resp BP BP Pulse Ox 05/20/21 05:04 36.7 C 75 18 100/66 98 05/20/21 01:00 36.9 C 79 18 116/77 98 05/20/21 00:43 99 H 128/87 05/20/21 00:28 100 H 109/67 05/20/21 00:13 87 107/56 L 05/19/21 23:58 78 119/65 05/19/21 23:43 113 H 129/75 05/19/21 23:28 100 H 121/60 05/19/21 23:13 94 H 123/58 L 03/03/22 23:02 88 132/59 L 05/19/21 22:43 100 H 132/77 05/19/21 22:28 101 H 147/70 H 05/19/21 22:15 107 H 20 124/72 05/19/21 22:13 107 H 124/72 05/19/21 22:00 100 H 18 133/69 05/19/21 21:58 100 H 133/69 05/19/21 21:45 102 H 18 136/71 05/19/21 21:44 102 H 136/71 05/19/21 21:30 36.7 C 105 H 18 138/62 05/19/21 21:28 105 H 138/62 05/19/21 21:15 105 H 18 138/62 05/19/21 21:08 98 H 100 05/19/21 21:03 103 H 100 05/19/21 20:58 114 H 100 05/19/21 20:53 102 H 100 05/19/21 20:48 107 H 100 05/19/21 20:43 108 H 124/80 100 05/19/21 20:38 91 H 100 05/19/21 20:33 106 H 100 05/19/21 20:28 98 H 134/77 99 05/19/21 20:23 93 H 100 05/19/21 20:18 96 H 100 05/19/21 20:13 88 137/73 100 05/19/21 20:08 85 100 05/19/21 20:03 89 100 05/19/21 20:00 18 05/19/21 19:58 90 133/63 100 05/19/21 19:53 94 H 100 05/19/21 19:48 95 H 100 05/19/21 19:43 109 H 100 05/19/21 19:38 83 100 Laboratory Results Abnormal lab results 05/19/21 05/20/21 Range/Units 08:07 06:15 RBC 4.04 L (4.2-5.4) M/uL Hgb 10.9 L 8.4 L (12.0-16.0) g/dL Hct 33.9 L 26.0 L (37-47) %
[2021-05-20] MEDS: DOCUSATE SODIUM 100 MG CAP PO SCH ×2 (08:57→20:17)
[2021-05-20] MEDS: PRENATAL VITAMIN 1 TAB PO SCH (08:58)
[2021-05-20] MEDS ORDERED: bisacodyL 5 MG TABEC PO SCH (20:00)
--- NOTE | 2021-05-21 05:29 | Obstetrical Progress Note ---
Date of Service <Sheryl Johnson MD - Last Filed: 05/21/21 07:35> May 21, 2021 Assessment & Plan <Sheryl Johnson MD - Last Filed: 05/21/21 07:35> (1) Vaginal delivery: 25 yo now PPD2 from at 40wk2d, with PPH 500ccs+ requiring mether gine -Discharge home today -Vitals reviewed- HDS, afebrile -Blood type AB+, GBS+, Rubella immune -Pain control with ibuprofen, acetaminophen PRN -F/u in 6 weeks with OB <Janette Cleveland DO - Last Filed: 05/21/21 07:57> (1) Vaginal delivery: Subjective <Sheryl Johnson MD - Last Filed: 05/21/21 07:35> Ambulation: ambulating normally Voiding: no voiding problems Passing Gas:: Yes Diet Tolerance:: regular diet Lochia:: Small Feeding Type:: bottle feeding Current Pain Level(1-10): 0 Pt doing well overall, no acute complaints or distress. Pain well controlled with medication. Would like to go home today. Review of Systems Denies dysuria. Denies fever/chills. Denies dyspnea, cough. Denies chest pain. Denies breast pain or discharge. Denies headache. Denies back pain. Physical Exam <Sheryl Johnson MD - Last Filed: 05/21/21 07:35> General: Alert, oriented, no acute distress Cardiac: Regular rate and rhythm, normal S1, S2. No murmurs appreciated. Respiratory: Clear to auscultation b/l with good air flow entry, symmetric chest rise and fall. No wheezes or crackles. No increased work of breathing or accessory muscle use Abdomen: Soft, nontender, nondistended. Fundus firm and palpable at 2 cm below umbilicus. No guarding or rebound. Skin: No rashes or lesions Extremities: Warm, dry, well-perfused with capillary refill <2s b/l. No lower extremity edema, erythema or swelling. Negative Vianey's sign b/l. Results & Data ([facility]) <Sheryl Johnson MD - Last Filed: 05/21/21 07:35> Vital Signs (Past 12 Hours) Vital Signs Temp Pulse Resp BP Pulse Ox 05/21/21 05:00 36.5 C 69 16 101/68 99 05/20/21 20:15 36.6 C 90 18 107/72 99 <Janette Cleveland DO - Last Filed: 05/21/21 07:57> Co-Signing Physician Notes Resident Physician Supervision Note: I was present with Dr. Johnson during the history and exam. I discussed the case with the resident and agree with the findings and plan as documented in the note. Any exceptions or clarifications are listed here: PPD#2 doing well, plan for DC home. Documented By: Janette Cleveland DO Resident Activity Tracking <Sheryl Johnson MD - Last Filed: 05/21/21 07:35> Resident Involvement: Resident Care Provided Care Provided: OB Delivery
[2021-05-21] MEDS: PRENATAL VITAMIN 1 TAB PO SCH (08:47)
[2021-05-21] MEDS: DOCUSATE SODIUM 100 MG CAP PO SCH (08:47)
[2021-05-21] MEDS: IBUPROFEN 600 MG TAB PO PRN (08:47)
== END 2021-05-21 10:45 | disposition home or self-care (01) | DRG 807 ==
LOC: 4S1 07:32 → 4S2 05-20 01:02